=== PATIENT | male | born 1955 | race Caucasian/White ===

== ENCOUNTER → 2021-05-31 | Outpatient (CLI) | payer MEDICARE, OTHER ==
[2021-05-31 07:47] LABS: BASO # 0.02 (0.02-0.10); EOS # 0.13 (0.04-0.40); EOS % 2.2 % (0.0-4.0); HEMATOCRIT 44.3 % (42.0-52.0); HEMOGLOBIN 14.8 g/dL (13.5-18.0); MEAN CELL VOLUME 94 fl (78-100); MEAN CORPUSCULAR HEMOGLOBIN 31 pg (27-31); MEAN CORPUSCULAR HGB CONC 33 g/dL (33-37); MEAN PLATELET VOLUME 8.1 fl (7.4-10.4); MONO # 0.58 (0.20-0.80); PLATELET COUNT 215 K/mm3 (130-400); RED BLOOD COUNT 4.71 M/mm3 (4.20-5.60); RED CELL DISTRIBUTION WIDTH 12.2 % (11.5-14.5)
[2021-05-31 07:58] LABS: ALBUMIN 3.9 g/dL (3.4-4.8); POTASSIUM 4.2 mmol/L (3.5-5.1)
[2021-05-31 07:59] LABS: CALCIUM 8.9 mg/dL (8.3-10.5)
[2021-05-31 08:00] LABS: TOTAL PROTEIN 6.5 g/dL (6.2-8.1)
[2021-05-31 08:02] LABS: TOTAL BILIRUBIN 0.6 mg/dL (0.2-1.2)
== END ==
LOC: LAB 07:29
PROVIDERS: Physician Assistant
DX: Z00.00 Encounter for general adult medical examination without abnormal findings (principal); Z12.5 Encounter for screening for malignant neoplasm of prostate; Z13.29 Encounter for screening for other suspected endocrine disorder; E78.00 Pure hypercholesterolemia, unspecified

== ENCOUNTER → 2022-02-05 | Outpatient (CLI) | payer MEDICARE, OTHER ==
[~2022-02-05] MED LIST: DIFICID200 MG PO; MULTIPLE VITAMI1 TA5 PO; ROSUVASTATIN CA10 MG PO; ZOFRAN ODT4 MG PO
[2022-02-05 13:50] LABS: ALBUMIN 4.3 g/dL (3.4-4.8); POTASSIUM 4.5 mmol/L (3.5-5.1)
[2022-02-05 13:52] LABS: CALCIUM 9.6 mg/dL (8.3-10.5)
[2022-02-05 13:53] LABS: TOTAL PROTEIN 7.2 g/dL (6.2-8.1)
[2022-02-05 13:55] LABS: TOTAL BILIRUBIN 0.3 mg/dL (0.2-1.2)
[2022-02-05 16:25] LABS: BASO # 0.03 K/mm3 (0.02-0.10); EOS # 0.12 K/mm3 (0.04-0.40); EOS % 1.7 % (0.0-4.0); HEMATOCRIT 46.2 % (42.0-52.0); HEMOGLOBIN 15.3 g/dL (13.5-18.0); LYMPH# 1.76 K/mm3 (1.50-4.00); MEAN CELL VOLUME 94 fl (78-100); MEAN CORPUSCULAR HEMOGLOBIN 31 pg (27-31); MEAN CORPUSCULAR HGB CONC 33 g/dL (33-37); MEAN PLATELET VOLUME 8.7 fl (7.4-10.4); NEU # 4.14 K/mm3 (1.40-6.50); PLATELET COUNT 240 K/mm3 (130-400); RED BLOOD COUNT 4.94 M/mm3 (4.20-5.60); RED CELL DISTRIBUTION WIDTH 12.5 % (11.5-14.5); WHITE BLOOD COUNT 6.9 K/mm3 (4.8-10.8)
== END ==
LOC: LAB 13:32
PROVIDERS: Physician Assistant
DX: L03.90 Cellulitis, unspecified (principal)

== ENCOUNTER → 2022-02-13 | Outpatient (CLI) | payer MEDICARE, OTHER | LOC: LAB 13:58 | DX: R19.7 Diarrhea, unspecified (principal) ==

== ENCOUNTER 2022-03-01 21:17 | Emergency (ER) | payer MEDICARE, OTHER ==
[~2022-03-01] VITALS: Ht 175.3 cm; Wt 60.0 kg
[2022-03-01] MEDS ORDERED: ROSUVASTATIN CA10 MG PO (21:55)
[2022-03-01] MEDS ORDERED: MULTIPLE VITAMI1 TA5 PO (21:56)
[2022-03-01 22:57] LABS: HEMATOCRIT 44.9 % (42.0-52.0); HEMOGLOBIN 15.1 g/dL (13.5-18.0); MEAN CELL VOLUME 93 fl (78-100); MEAN CORPUSCULAR HEMOGLOBIN 31 pg (27-31); MEAN CORPUSCULAR HGB CONC 34 g/dL (33-37); MEAN PLATELET VOLUME 8.3 fl (7.4-10.4); PLATELET COUNT 241 K/mm3 (130-400); RED BLOOD COUNT 4.83 M/mm3 (4.20-5.60); RED CELL DISTRIBUTION WIDTH 12.3 % (11.5-14.5)
[2022-03-01 23:00] LABS: ALBUMIN 4.3 g/dL (3.4-4.8)
[2022-03-01 23:01] LABS: POTASSIUM 4.3 mmol/L (3.5-5.1)
[2022-03-01 23:02] LABS: CALCIUM 9.1 mg/dL (8.3-10.5)
[2022-03-01 23:03] LABS: TOTAL PROTEIN 7.1 g/dL (6.2-8.1)
[2022-03-01 23:17] LABS: BAND 2 % (0-10); LYMPHOCYTE 4 % (20-51); MONOCYTE 3 % (3-10); NEUTROPHILS 91 % (42-75)
[2022-03-01] MEDS ORDERED: DIFICID200 MG PO (23:41)
[2022-03-01] MEDS ORDERED: ZOFRAN ODT4 MG PO (23:41)
[2022-03-01 23:54] VITALS: BP 123/78
== END 2022-03-01 23:54 | disposition home or self-care (01) ==
LOC: ED 21:17
PROVIDERS: Family Medicine
DX: A04.71 Enterocolitis due to Clostridium difficile, recurrent (principal)

== ENCOUNTER → 2022-04-22 | Outpatient (CLI) | payer MEDICARE, OTHER ==
[2022-04-22 09:06] LABS: BASO # 0.03 K/mm3 (0.02-0.10); EOS # 0.05 K/mm3 (0.04-0.40); EOS % 0.8 % (0.0-4.0); HEMATOCRIT 45.1 % (42.0-52.0); HEMOGLOBIN 15.1 g/dL (13.5-18.0); LYMPH# 0.88 K/mm3 (1.50-4.00); MEAN CELL VOLUME 94 fl (78-100); MEAN CORPUSCULAR HEMOGLOBIN 31 pg (27-31); MEAN CORPUSCULAR HGB CONC 34 g/dL (33-37); MEAN PLATELET VOLUME 8.3 fl (7.4-10.4); MONO # 0.54 K/mm3 (0.20-0.80); NEU # 4.74 K/mm3 (1.40-6.50); PLATELET COUNT 206 K/mm3 (130-400); RED BLOOD COUNT 4.81 M/mm3 (4.20-5.60); RED CELL DISTRIBUTION WIDTH 12.5 % (11.5-14.5); WHITE BLOOD COUNT 6.3 K/mm3 (4.8-10.8)
[2022-04-22 09:13] LABS: ALBUMIN 4.2 g/dL (3.4-4.8)
[2022-04-22 09:14] LABS: POTASSIUM 4.1 mmol/L (3.5-5.1)
[2022-04-22 09:15] LABS: CALCIUM 9.4 mg/dL (8.3-10.5)
[2022-04-22 09:16] LABS: TOTAL PROTEIN 6.9 g/dL (6.2-8.1)
[2022-04-22 09:18] LABS: TOTAL BILIRUBIN 0.6 mg/dL (0.2-1.2)
[2022-04-22 09:50] LABS: URINE APPEARANCE CLEAR; URINE BILIRUBIN NEGATIVE (NEGATIVE); URINE BLOOD TRACE (NEGATIVE); URINE COLOR YELLOW; URINE GLUCOSE NEGATIVE (NEGATIVE); URINE KETONE NEGATIVE (NEGATIVE); URINE LEUKOCYTE ESTERASE NEGATIVE (NEGATIVE); URINE NITRATE NEGATIVE (NEGATIVE); URINE PROTEIN(semi-quant) TRACE (NEGATIVE); URINE UROBILINOGEN NORMAL (NORMAL); URINE WBC 0-1 /hpf (0-3)
[2022-04-22 10:12] LABS: MAGNESIUM 2.13 mg/dL (1.60-2.60)
== END ==
LOC: LAB 08:41
PROVIDERS: Nurse Practitioner Family
DX: R10.84 Generalized abdominal pain (principal); R19.7 Diarrhea, unspecified; Z86.19 Personal history of other infectious and parasitic diseases

== ENCOUNTER → 2022-05-06 | Outpatient (CLI) | payer MEDICARE, OTHER | LOC: RAD 09:51 | DX: N40.1 Benign prostatic hyperplasia with lower urinary tract symptoms (principal); R79.89 Other specified abnormal findings of blood chemistry ==

== ENCOUNTER → 2022-05-20 | Outpatient (CLI) | payer MEDICARE, OTHER ==
[2022-05-20 10:34] LABS: URINE WBC 0 /hpf (0-3)
[2022-05-20 10:40] LABS: POTASSIUM 4.4 mmol/L (3.5-5.1)
[2022-05-20 10:41] LABS: CALCIUM 9.4 mg/dL (8.3-10.5)
[2022-05-20 10:42] LABS: TOTAL PROTEIN 6.8 g/dL (6.2-8.1)
[2022-05-20 10:44] LABS: TOTAL BILIRUBIN 0.6 mg/dL (0.2-1.2)
[2022-05-20 11:02] LABS: URINE APPEARANCE CLEAR; URINE BILIRUBIN NEGATIVE (NEGATIVE); URINE BLOOD NEGATIVE (NEGATIVE); URINE COLOR YELLOW; URINE GLUCOSE NEGATIVE (NEGATIVE); URINE KETONE NEGATIVE (NEGATIVE); URINE LEUKOCYTE ESTERASE NEGATIVE (NEGATIVE); URINE NITRATE NEGATIVE (NEGATIVE); URINE PROTEIN(semi-quant) NEGATIVE (NEGATIVE); URINE UROBILINOGEN NORMAL (NORMAL)
== END ==
LOC: LAB 07:22
PROVIDERS: Internal Medicine Nephrology
DX: N40.1 Benign prostatic hyperplasia with lower urinary tract symptoms (principal); R79.89 Other specified abnormal findings of blood chemistry